=== PATIENT | female | born 1955 | race Caucasian/White ===

== ENCOUNTER 2022-02-13 05:43 | Emergency (ER) | payer MEDICARE ==
[~2022-02-13] VITALS: Ht 167.6 cm; Wt 119.8 kg
[~2022-02-13 05:43] MED LIST: TESSALON PERLE100 MG PO
[2022-02-13] MEDS ORDERED: OXYBUTYNIN CHLOR5 M1 PO (05:58)
[2022-02-13] MEDS ORDERED: VENLAFAXINE HCL75 M1 PO (05:58)
[2022-02-13] MEDS ORDERED: LOSARTAN POTASS50 MG PO (05:58)
== END 2022-02-13 06:29 | disposition home or self-care (01) ==
LOC: ED 05:43
DX: H10.89 Other conjunctivitis (principal); I10 Essential (primary) hypertension; Z88.8 Allergy status to other drugs, medicaments and biological substances; Z88.5 Allergy status to narcotic agent; Z79.899 Other long term (current) drug therapy
CPT/HCPCS: 99283

== ENCOUNTER 2025-07-07 09:20 | Day surgery (SDC) | payer MEDICARE ==
[~2025-07-07] VITALS: Ht 167.6 cm; Wt 132.0 kg
[~2025-07-07 09:20] MED LIST changes: +IBLOOD GLUCOSE TEST STRIP 1 EA TEST VI PRN; +LACTATED RINGER'S 1,000 ML IV SCH; +LIDOCAINE HCL 1% 5 ML SDV INJ ONE; +LIDOCAINE HCL 4% 50 ML BTL TOP SCH; +LOSARTAN POTASS50 MG PO; +OXYBUTYNIN CHLOR5 M1 PO; +VENLAFAXINE HCL75 M1 PO
[2025-07-07 09:57] VITALS: BP 138/85
[2025-07-07] MEDS ORDERED: METOPROLOL SUCC25 MG PO (10:02)
[2025-07-07] MEDS ORDERED: ZEPBOUND5 MG/0.5 M SUB-Q (10:03)
[2025-07-07] MEDS ORDERED: MAGNESIUM100 MG PO (10:05)
[2025-07-07] MEDS ORDERED: VITAMIN D310 MC4 PO (10:06)
[2025-07-07] MEDS ORDERED: FISH OIL 1,0001 EAC6 PO (10:06)
[2025-07-07] MEDS ORDERED: MIDAZOLAM HCL 5 MG/5 ML VIAL ONE (11:24)
[2025-07-07] MEDS ORDERED: fentaNYL citrate 100 MCG/2 ML VIAL ONE (11:25)
--- NOTE | 2025-07-07 12:08 | NUR ---
07/07/25 1208 Angélica Lombardi 1158- PT PRESENTS TO PACU, LEFT LATERAL POSITION, DROWSY BUT ANSWERS QUESTIONS. BREATHING EVEN AND NON LABORED ON 3L O2 PER NC. LR INFUSING TO LH IV. ABD SOFT, NON DISTENDED. ALL MONITORS IN PLACE. PT WAKES OFF AND ON, DENIES PAIN OR NAUSEA. 1208- PT WAKES OFF AND ON, NO SIGNS OF DISTRESS. NO COMPLAINTS.
[2025-07-07 12:39] VITALS: BP 126/72
--- NOTE | 2025-07-07 12:57 | OR ---
[facility] [address], [place] [address] Signed DATE OF OPERATION: 07/07/2025 SURGEON: Melva Peoples MD PREOPERATIVE DIAGNOSES: 1. Episodic dysphagia, known gastroesophageal reflux. 2. Morbid obesity, on GLP-1 agonist. POSTOPERATIVE DIAGNOSES: 1. Poor flap valve consistent with small hiatal hernia. 2. Questionable distal esophageal Houston's epithelium. 3. Equivocal CLOtest. PROCEDURE: Esophagogastroduodenoscopy with biopsy. ANESTHESIA: Intravenous sedation; fentanyl 100 mcg and Versed 3 mg. INDICATION: This 70-year-old white woman is a patient of BARBARA Ria. She has had complaints of dysphagia episodically to steak and bread, but not to liquids or other food types. She has been on PPI medication in the past for reflux disease, but no longer is taking it. She has started Zepbound GLP-1 agonist for weight loss efforts. She is quite morbidly obese, 290 pounds, though she has lost 30 pounds on this medication. She does have underlying other problems including sleep apnea, history of neck fusion and other issues. She has no family history of esophageal cancer. She is admitted at this time to undergo upper endoscopy to assess the source and cause of her dysphagia. She understands the risk of bleeding, infection, failure of diagnosis, missed diagnosis, and other unforeseen complications. She understands and she wished to proceed. FINDINGS: There was no stricture. There was possibly short-segment Houston's esophagus. The flap valve was poor consistent with small hiatal hernia. The stomach and duodenum were otherwise normal. CLOtest was equivocal at 20 minutes post procedure. DESCRIPTION OF PROCEDURE: The patient was brought to the endoscopy suite, given topical lidocaine hypopharyngeal anesthesia and placed in the lateral decubitus position. A bite block was placed after intravenous sedation induced to the point of slurred speech and nystagmus. Full Electronically Signed By: MELVA PEOPLES MD 07/07/25 1257 PATIENT NAME: JENNIFER QUEZADA OPERATIVE REPORT DATE OF : 59 REPORT #: [id number] PHYSICIAN: MELVA PEOPLES MD PCP: CINDY THURSTON REPORT IS CONFIDENTIAL AND NOT TO BE RELEASED WITHOUT AUTHORIZATION [facility] [address], [place] [address] Signed cardiopulmonary monitoring was maintained. An Olympus video upper endoscope was passed in the hypopharynx. The vocal cords appeared normal. Scope was advanced to the esophagus; throughout its length it appeared reasonably normal. The distal portion had mucosa in the distal portion consistent with short-segment Houston's. Scope was passed to the stomach which was insufflated with air. There was no sign of bile in the stomach. Rugal folds were normal. Pylorus was normal. Scope was passed through into the duodenum. Biopsies were then taken of the duodenal mucosa, though it appeared normal. Scope was withdrawn and biopsies taken of the antrum for both ZEINAB and pathologic testing. Retroflexed view showed a poor flap valve consistent with small hiatal hernia. Scope was straightened, withdrawn and close inspection of mucosa showed no evidence of stricture, neoplasm or varices, but there was short-segment Houston's epithelium, most likely. This area was biopsied. Scope was withdrawn. The midesophagus was then biopsied further to assure no evidence of eosinophilic esophagitis, though she had no other stigmata (felinization, etc.) Further withdrawal showed no other findings of concern. The scope was removed and the patient was taken to the recovery room in good condition. CONCLUDING DIAGNOSIS: No clear evidence of etiology for swallowing problem. Whether or not her GLP-1 agonist contributes is uncertain at this time. PLAN: Recommend Prilosec 20 mg p.o. daily as previously recommended. I will review her pathology reports to assure there is no evidence of Houston's epithelium or eosinophilic esophagitis or other causes of concern. She will return to the ongoing care of BARBARA Rai. MD DEIDRE Taylor/MANDYL /[id number] Electronically Signed By: MELVA PEOPLES MD 07/07/25 1257 PATIENT NAME: JENNIFER QUEZADA OPERATIVE REPORT DATE OF : 59 REPORT #: [id number] PHYSICIAN: MELVA PEOPLES MD PCP: CINDY THURSTON REPORT IS CONFIDENTIAL AND NOT TO BE RELEASED WITHOUT AUTHORIZATION [facility] [address] [place] [address] [place] [address] Signed Copies: ~ Electronically Signed By: MELVA PEOPLES MD 07/07/25 1257 PATIENT NAME: JENNIFER QUEZADA OPERATIVE REPORT DATE OF : 59 REPORT #: [id number] PHYSICIAN: MELVA PEOPLES MD PCP: CINDY THURSTON REPORT IS CONFIDENTIAL AND NOT TO BE RELEASED WITHOUT AUTHORIZATION
--- NOTE | 2025-07-13 18:04 | PATH ---
[facility] [address], [place] [address] Signed SPECIMEN(S): A DUODENUM BIOPSY SPECIMEN(S): B ANTRUM BIOPSY SPECIMEN(S): C LOWER ESOPHAGUS BIOPSY SPECIMEN(S): D MIDDLE ESOPHAGUS BIOPSY SPECIMEN SOURCE: A. DUODENUM BIOPSY B. ANTRUM BIOPSY C. LOWER ESOPHAGUS BIOPSY D. MIDDLE ESOPHAGUS BIOPSY CLINICAL HISTORY: Dysphagia, Houston's FINAL PATHOLOGIC DIAGNOSIS: A. Duodenum biopsy: - Benign duodenal mucosa, negative for specific diagnostic abnormality. B. Antrum biopsy: - Benign gastric antral mucosa with mild superficial chronic inflammation (gastritis). - Helicobacter pylori immunostain is negative for organisms. C. Lower esophagus biopsy: - Esophageal gastric mucosa with reactive features and mild chronic inflammation. - Negative for specialized intestinal metaplasia or dysplasia. D. Middle esophagus biopsy: - Benign esophageal epithelium, negative for increased epithelial eosinophils. - Negative for glandular mucosa. COMMENT: A Helicobacter pylori immunostain is performed with appropriate positive and negative controls on block B1 and is negative for organisms. [facility] MICROSCOPIC EXAMINATION: Histologic sections of all submitted blocks are examined by light microscopy. These findings, together with the gross examination, support the pathologic diagnosis. GROSS DESCRIPTION: A. The specimen, labeled and designated "Kurt duodenum biopsy," is received in PATIENT NAME: JENNIFER QUEZADA PATHOLOGY DATE OF : 59 REPORT #: [id number] PHYSICIAN: [facility] PATHOLOGY PCP: CINDY THURSTON REPORT IS CONFIDENTIAL AND NOT TO BE RELEASED WITHOUT AUTHORIZATION [facility] [address] [facility] [place] [address] Signed formalin and consists of two pelaez soft tissue fragments, ranging from 0.4-0.5 cm. Entirely submitted in (A1). B. The specimen, labeled and designated "Kurt, antrum biopsy," is received in formalin and consists of four pelaez soft tissue fragments, ranging from 0.1-0.3 cm. Entirely submitted in (B1). C. The specimen, labeled and designated "Kurt, lower esophagus biopsy," is received in formalin and consists of four pelaez soft tissue fragments, ranging from 0.2-0.5 cm. Entirely submitted in (C1). D. The specimen, labeled and designated "Kurt, middle esophagus biopsy," is received in formalin and consists of six pelaez soft tissue fragments, ranging from 0.1-0.5 cm. Entirely submitted in (D1). VB (under the direct supervision of a pathologist) The Gross Description was prepared using a voice recognition system. The report was reviewed for accuracy; however, sound-alike word errors, addition and/or deletions may occur. If there is any question about this report, please contact Client Services. ADDITIONAL NOTES: Immunohistochemical and/or in situ hybridization studies if performed in this case included appropriate positive controls that reacted as expected. This test was developed and its performance characteristics determined by [facility]. It has not been cleared or approved by the U.S. Food and Drug Administration. The FDA has determined that such clearance or approval is not necessary. This test is used for clinical purposes. It should not be regarded as investigational or for research. [facility] is certified under the Clinical Laboratory Improvement Amendments of 1988 (CLIA) as qualified to perform high complexity clinical laboratory testing. PERFORMING LABORATORY: Technical component was performed by [facility], [address] [place] [id number] (CLIA# [id number]). Professional interpretation was performed by [facility] [place] [facility] - [address] [place] [address] (CLIA#: [id number]). Diagnostician: Harris Mcarthur MD Pathologist Electronically Signed 07/13/2025 PATIENT NAME: JENNIFER QUEZADA PATHOLOGY DATE OF : 59 REPORT #: [id number] PHYSICIAN: [facility] PATHOLOG[facility] PCP: CINDY THURSTON REPORT IS CONFIDENTIAL AND NOT TO BE RELEASED WITHOUT AUTHORIZATION [address] [address] Signed Copies: ~ PATIENT NAME: JENNIFER QUEZADA PATHOLOGY DATE OF : 59 REPORT #: [id number] PHYSICIAN: [facility] PCP: CINDY THURSTON REPORT IS CONFIDENTIAL AND NOT TO BE RELEASED WITHOUT AUTHORIZATION
== END 2025-07-07 12:42 | disposition home or self-care (01) ==
LOC: DS 09:20
PROVIDERS: ATTEND Surgery
PROC: 0DB68ZX Excision of Stomach, Via Natural or Artificial Opening Endoscopic, Diagnostic (ICD-10-PCS; 2025-07-07)
PROC: 0DB28ZX Excision of Middle Esophagus, Via Natural or Artificial Opening Endoscopic, Diagnostic (ICD-10-PCS; 2025-07-07)
PROC: 0DB98ZX Excision of Duodenum, Via Natural or Artificial Opening Endoscopic, Diagnostic (ICD-10-PCS; principal; 2025-07-07 10:45)
DX: K44.9 Diaphragmatic hernia without obstruction or gangrene (principal); K29.50 Unspecified chronic gastritis without bleeding; K20.90 Esophagitis, unspecified without bleeding; G47.30 Sleep apnea, unspecified; I10 Essential (primary) hypertension; E66.01 Morbid (severe) obesity due to excess calories; Z68.42 Body mass index [BMI] 45.0-49.9, adult; Z88.5 Allergy status to narcotic agent; Z87.09 Personal history of other diseases of the respiratory system; Z90.49 Acquired absence of other specified parts of digestive tract
CPT/HCPCS: 88305; 88342; 99153; G0500; J2250; J3010; J7121